=== PATIENT | female | born 1990 | race Caucasian/White ===

== ENCOUNTER 2021-07-11 11:32 | Emergency (ER) | payer BC, SELFPAY ==
--- NOTE | 2021-07-11 11:31 | ECG_ITS ---
APPROVED REPORT Exam: Resting ECG HR:73 bpm ECG Measurements Heart Rate 73 AXES WY 160 P 45 QRSd 76 QRS 9 QT 404 T 64 QTc 445 Conclusion Normal sinus rhythm Normal ECG Electronically signed by : Alonzo Escobar MD 07/12/2021 19:57:28
[2021-07-11 11:33] VITALS: BP 155/92; PULSE 75; RESP 19; TEMP 37; O2SAT 98; BMI 58.3
--- NOTE | 2021-07-11 12:01 | [facility].EDGENADL ---
ED Disposition Clinical Impression: COVID-19 Disposition: Home, Self-Care Condition on Discharge: Good Instructions: DI for COVID-19 (Suspected or Confirmed ) Additional Instructions: Please follow up with your primary care physician in 2-3 days for further management. Please take tylenol and ibuprofen for pain control and fever. Please continue to drink plenty of water and eat 3 balanced meals. Please also discuss with your primary care physician regarding your high blood pressure as blood pressure control whether through life style modification or medication use is important. Please return for symptoms that don't improve, difficulty breathing, worsening chest pain or any other worsening symptoms. Referrals: Provider,Referral, [Referring] - Forms: Work/School Release Time of Disposition: 12:30 - Critical Care Critical Care Time: No Attestation: On 07/11/21, the high probability of a clinically significant, sudden or life threatening deterioration of the following system(s) required my full and direct attention, intervention and personal management. The time I documented below is in addition to time spent performing reported procedures but includes the following listed in this critical care notation. Medical Decision Making - Medical Records Medical records reviewed: Yes: I reviewed the patient's medical records. - Jareth Inquiry Pt receiving controlled substance: No Vital Signs: 07/11/21 11:33 07/11/21 12:19 Temperature 98.6 F 98.5 F Temperature Source Oral Oral Pulse Rate 78 Pulse Rate [Right Radial] 75 Respiratory Rate 19 19 Blood Pressure 153/98 H Blood Pressure [Right Arm] 155/92 H Blood Pressure Mean [Right Arm] 113 Blood Pressure Source Automatic Cuff Blood Pressure Source [Right Arm] Automatic Cuff Blood Pressure Position Supine Blood Pressure Position [Right Arm] Supine 02 Sat by Pulse Oximetry 98 Oxygen Delivery Method Room Air Room Air - Lab Data Lab results reviewed: Yes: I reviewed the patient's lab results. Medical Decision Narrative: Miss Lowry is a 30 yo female w/ PMH for COVID on 07/08 who presents to the ED for residual covid symptoms including cough, chest pain. Patient is afebrile and hemodynamically stable on arrival. Patient is breathing comfortably with no increased work of breathing. Patient has equal breath sounds bilaterally w/ no wheezing, rhales or rhonchi. No concern for superimposed pneumonia at this time given duration of symptoms adn well appearing picture. Patient is perc negative low suspicion for pulmonary embolism will not investigate further. Bedside ECG normal sinus rhythm. After thorough medical evaluation patient is informed to take tylenol and ibuprofen and to follow up with her primary care physician via telehealth in 2-3 days. Patient provided strict return precautions such as difficultly breathing, inability to eat and drink or worsening chest pain. Patient is informed to self quarantine for remainder of quarantine period. Patient discharged in stable condition. General Adult HPI - General Chief complaint: Chest Pain Stated complaint: cp, covid + Time Seen by Provider: 07/11/21 11:40 Mode of Arrival: Ambulatory Source of Information: Patient Limitations: No Limitations - History of Present Illness HPI narrative: Miss Anand is a 30 yo female w/ PMH recent COVID diagnosis on 07/08 who presents to the ED for chest pain, cough and dyspnea. Patient reports symptom onset a few days prior and has not resolved. Associated symptoms include muscle cramps. Patient has been taking tylenol and ibuprofen with little relief. She denies any LE swelling/pain. No hemoptysis. No recent travel hx. No OCP use. No hx of blood clots and no blood thinner use. Vaccination history unknown at this time. Patient denies any recent trauma to the chest. Patient is tolerating po well with normal hydration. No bowel changes, fevers, chills, dizziness, lightheadness or any other co
[2021-07-11 12:19] VITALS: BP 153/98; PULSE 78; RESP 19; TEMP 36.9; O2SAT 98
== END 2021-07-11 12:19 | disposition home or self-care (01) ==
PROVIDERS: Emergency Provider Student in an Organized Health Care Education/Training Program; PCP Family Medicine
DX: U07.1 COVID-19 (principal)
CPT/HCPCS: 93005; 99281

== ENCOUNTER 2022-03-02 08:10 | Emergency (ER) | payer BC, SELFPAY ==
[2022-03-02 08:20] VITALS: BP 136/87; PULSE 89; RESP 22; TEMP 36.8; O2SAT 96; BMI 56.1
--- NOTE | 2022-03-02 08:57 | EXP.UTC ---
Discharge Plan Disposition Patient Disposition: Home, Self-Care Condition: Good Prescriptions Prescriptions: New amoxicillin-pot clavulanate 875-125 mg Tablet 1 tab PO Q12H Qty: 20 0RF prednisone 20 mg tablet 20 mg PO BID 5 Days Qty: 10 0RF Mucinex 1,200 mg tablet extended release 12hr 1,200 mg PO BID PRN (Reason: cough) Qty: 20 0RF albuterol sulfate [Proventil HFA] 90 mcg/actuation HFA aerosol inhaler 1 inh inhalation Q6H PRN (Reason: shortness of breath or wheezing) Qty: 8.5 0RF Referrals Follow up/Referrals: Caleb Peraza [Primary Care Provider] - See instructions Activity Restrictions/Add. Instructions Additional Instructions/Restrictions: Start antibiotic today. Be sure to complete entire prescription even if feeling better Monitor temp. Tylenol every 4 hours as needed and / or ibuprofen every 6 hours as needed ( As long as your primary care physician has told you that it ok to take both. For fever/aches/pains ER if no less than 101 despite Tylenol or Motrin Humidifier/vaporizer or hot steamy shower Inhaler every 4-6 hours as needed like we discussed. If unsure how to use it, ask pharmacist to demonstrate how. Should help open airways and improve cough, wheezing, and shortness of breath Mucinex for your cough and chest congestion Be sure to drink lots of water. *Start steroid today. Helps with inflammation therefore, cough and wheezing. Follow directions on the package. Reviewed side effects. Patient reports taking them before. Follow up IMMEDIATELY for new or worsening of symptoms OR no noticeable improvement over the next 48-72 hours. 911 immediately for any life threatening symptoms such as chest pain or difficulty breathing Clinical Impressions Clinical Impression: Sinusitis, Bronchitis Instructions Patient Instructions: DI for Sinusitis, Sinusitis, Acute Bronchitis Discharge ED Provider: Inez Hardy [facility] [place] General Stated complaint: soa, cough, congested Mode of Arrival: Ambulatory Source of Information: Patient Limitations: No Limitations Time Seen by Provider: 03/02/22 08:57 Description of Symptoms (Recalled from Triage Doc. by RN): PATIENT C/O TROUBLE BREATHING, COUGH WITH BLOOD MUCOUS, CONGESTION, AND COUGH X 3 DAYS HEENT Symptoms (Recalled from RN notes): Yes Resp Symptoms (Recalled from RN notes): Yes Skin Symptoms (Recalled from RN notes): No MS Symptoms (Recalled from RN notes): No Functional Status (Recalled from RN notes): WNL History of Present Illness Provider Complaint: Patient states that she was having sinus pain and pressure with bloody tinged mucous in her nose States that she feels like it is draining in the back of her throat and trying to move into her chest States that at times she will cough up mucous the same color that is coming out her nose and feels like she is getting bronchitis States that today she was still feeling bad so she came in Related Data Previous Rx's Medication Instructions Recorded albuterol sulfate 90 mcg/actuation 1 inh inhalation Q6H PRN shortness 03/02/22 aerosol inhaler (Proventil HFA) of breath or wheezing #8.5 grams amoxicillin 875 mg-potassium 1 tab PO Q12H #20 tabs 03/02/22 clavulanate 125 mg tablet guaifenesin 1,200 mg tablet, 1,200 mg PO BID PRN cough #20 tabs 03/02/22 extended release 12 hr (Mucinex) prednisone 20 mg tablet 20 mg PO BID 5 days #10 tabs 03/02/22 Allergies Allergy/AdvReac Type Severity Reaction Status Date / Time hazelnut AdvReac Severe Verified 07/11/21 12:10 Worker's Comp Is this a Worker's Comp case?: No PFSH PFSH Medical History (Updated 03/02/22 @ 09:16 by Inez Hardy APRN) Anxiety Asthma Depression Migraine Surgical History (Updated 03/02/22 @ 08:56 by Kenya Crooks RN) History of section History of cholecystectomy Social History (Updated 03/02/22 @ 08:55 by Kenya Crooks RN) Smoking St
[2022-03-02 09:22] VITALS: BP 136/87; PULSE 89; RESP 22; TEMP 36.8; O2SAT 96
== END 2022-03-02 09:24 | disposition home or self-care (01) ==
PROVIDERS: Emergency Provider Nurse Practitioner; PCP Family Medicine
DX: J32.9 Chronic sinusitis, unspecified (principal); J20.9 Acute bronchitis, unspecified
CPT/HCPCS: 99212; G0463

== ENCOUNTER 2022-04-25 08:10 | Emergency (ER) | payer BC, SELFPAY ==
--- NOTE | 2022-04-25 09:12 | EXP.UTC ---
Discharge Plan Disposition Patient Disposition: Home, Self-Care Condition: Good Prescriptions Prescriptions: New promethazine-DM 6.25-15 mg/5 mL Syrup 5 ml PO Q6H PRN (Reason: Cough) Qty: 240 0RF azithromycin [Zithromax] 250 mg tablet 250 mg PO UD DOSE PK Qty: 6 0RF Rx Instructions: Take two (2) tablets today, then one (1) tablet days #2 thru #5 benzonatate [benzonatate] 100 mg capsule 100 mg PO TIDP PRN (Reason: Cough) Qty: 30 0RF methylprednisolone 4 mg Tablets,Dose Pack 4 mg PO DIRECTED Qty: 21 0RF No Action amoxicillin-pot clavulanate 875-125 mg Tablet 1 tab PO Q12H Qty: 20 0RF prednisone 20 mg tablet 20 mg PO BID 5 Days Qty: 10 0RF Mucinex 1,200 mg tablet extended release 12hr 1,200 mg PO BID PRN (Reason: cough) Qty: 20 0RF albuterol sulfate [Proventil HFA] 90 mcg/actuation HFA aerosol inhaler 1 inh inhalation Q6H PRN (Reason: shortness of breath or wheezing) Qty: 8.5 0RF Referrals Follow up/Referrals: Caleb Peraza [Primary Care Provider] - See instructions Activity Restrictions/Add. Instructions Additional Instructions/Restrictions: Drink plenty of fluids. Take tylenol or ibuprofen for pain or fever. Take the medications as directed. Follow up with your regular doctor. GO TO THE ER FOR ANY WORSENING SYMPTOMS The cough medication (promethazine dm) will make you drowsy, so don't drive or operate heavy machinery after taking it. Clinical Impressions Clinical Impression: Viral syndrome, Bronchitis Stand Alone Forms Stand Alone Forms: Work/School Release Instructions Patient Instructions: Acute Bronchitis, DI for Viral Syndrome Discharge ED Provider: Oscar Martin [place] HPI General Stated complaint: Cough, Congestion Time Seen by Provider: 04/25/22 09:12 History of Present Illness Provider Complaint: She states that for the past 2 days she has had a worsening deep cough, sinus congestion and malaise. She had vomiting yesterday but today she is just nauseated. She also has diarrhea. Related Data Previous Rx's Medication Instructions Recorded albuterol sulfate 90 mcg/actuation 1 inh inhalation Q6H PRN shortness 09/08/22 aerosol inhaler (Proventil HFA) of breath or wheezing #8.5 grams amoxicillin 875 mg-potassium 1 tab PO Q12H #20 tabs 03/02/22 clavulanate 125 mg tablet guaifenesin 1,200 mg tablet, 1,200 mg PO BID PRN cough #20 tabs 03/02/22 extended release 12 hr (Mucinex) prednisone 20 mg tablet 20 mg PO BID 5 days #10 tabs 03/02/22 azithromycin 250 mg tablet 250 mg PO UD DOSE PK #6 tabs 04/25/22 (Zithromax) benzonatate 100 mg capsule 100 mg PO TIDP PRN Cough #30 caps 04/25/22 methylprednisolone 4 mg tablets in 4 mg PO DIRECTED #21 tabs 04/25/22 a dose pack promethazine-DM 6.25 mg-15 mg/5 mL 5 ml PO Q6H PRN Cough #240 mL 04/25/22 oral syrup Allergies Allergy/AdvReac Type Severity Reaction Status Date / Time hazelnut AdvReac Severe [facility]/11[facility]21 [facility] Anxiety Asthma Depression Migraine Surgical History History of section History of cholecystectomy Social History Smoking Status: Unknown if ever smoked alcohol intake: never current occupational status: other Travel in the last 8 weeks: None ROS Obtained: Yes All systems reviewed & no additional complaints except as documented Constitutional Constitutional: Reports chills and Reports fever(s) Eyes Eyes: Denies eye discharge ENT Ears, Nose, Mouth, and Throat: Reports as per HPI Cardiovascular Cardiovascular: Denies chest pain Respiratory Respiratory: Denies chest congestion and Reports cough Gastrointestinal Gastrointestingal: Reports nausea; Denies abdominal pain, constipation, cramping, diarrhea or vomiting Musculoskeletal Musculoskeletal
[2022-04-25 09:20] VITALS: BP 149/96; PULSE 77; RESP 18; TEMP 36.8; O2SAT 96; BMI 56.6
[2022-04-25 09:22] VITALS: BP 149/96; PULSE 77; RESP 18; TEMP 36.8
[2022-04-25 09:31] LABS: Adenovirus,PCR Not Detected (NotDetected); Bordetella Pertussis Not Detected (NotDetected); Chlamydophila Pneumoniae, PCR Not Detected (NotDetected); Coronavirus 19, PCR Not Detected (NotDetected); Coronavirus 229E Not Detected (NotDetected); Coronavirus NL63 Not Detected (NotDetected); Coronavirus OC43 Not Detected (NotDetected); Coronovirus HKU1,PCR Not Detected (NotDetected); Human Metapneumovirus Not Detected (NotDetected); Influenza A, PCR Not Detected (NotDetected); Influenza AH1, 2009 Not Detected (NotDetected); Influenza AH1, PCR Not Detected (NotDetected); Influenza AH3,PCR Not Detected (NotDetected); Influenza B, PCR Not Detected (NotDetected); Mycoplasma Pneumoniae, PCR Not Detected (NotDetected); Parainfluenza 1, PCR Not Detected (NotDetected); Parainfluenza 3, PCR Not Detected (NotDetected); Parainfluenza 4, PCR Not Detected (NotDetected); Respiratory Syncytial Virus Not Detected (NotDetected)
[2022-04-25 17:40] LABS: Parainfluenza 2, PCR Detected (NotDetected); Rhinovirus/Enterovirus Detected (NotDetected)
== END 2022-04-25 09:28 | disposition home or self-care (01) ==
PROVIDERS: Emergency Provider Nurse Practitioner Family; PCP Family Medicine
DX: J40 Bronchitis, not specified as acute or chronic (principal); B34.8 Other viral infections of unspecified site
CPT/HCPCS: 87581; 87632; 87798; 99212; C9803; G0463; U0003; U0005

== ENCOUNTER 2023-02-12 09:01 | Emergency (ER) | payer BC, SELFPAY ==
[2023-02-12 09:03] VITALS: BP 142/89; PULSE 105; RESP 18; TEMP 37.7; O2SAT 95; BMI 57.4
--- NOTE | 2023-02-12 09:15 | EXP.UTC ---
Discharge Plan Disposition Patient Disposition: Home, Self-Care Condition: Good Prescriptions Prescriptions: New amoxicillin [amoxicillin] 875 mg tablet 875 mg PO Q12H Qty: 20 0RF [id number] [Bromfed DM] 2-30-10 mg/5 mL Syrup 5 ml PO Q6H PRN (Reason: Cough) Qty: 240 0RF ondansetron 4 mg Tablet,Disintegrating 4 mg PO Q8H PRN (Reason: Nausea) Qty: 12 0RF methylprednisolone 4 mg Tablets,Dose Pack 4 mg PO DIRECTED Qty: 21 0RF No Action amoxicillin-pot clavulanate 875-125 mg Tablet 1 tab PO Q12H Qty: 20 0RF prednisone 20 mg tablet 20 mg PO BID 5 Days Qty: 10 0RF Mucinex 1,200 mg tablet extended release 12hr 1,200 mg PO BID PRN (Reason: cough) Qty: 20 0RF albuterol sulfate [Proventil HFA] 90 mcg/actuation HFA aerosol inhaler 1 inh inhalation Q6H PRN (Reason: shortness of breath or wheezing) Qty: 8.5 0RF promethazine-DM 6.25-15 mg/5 mL Syrup 5 ml PO Q6H PRN (Reason: Cough) Qty: 240 0RF azithromycin [Zithromax] 250 mg tablet 250 mg PO UD DOSE PK Qty: 6 0RF Rx Instructions: Take two (2) tablets today, then one (1) tablet days #2 thru #5 benzonatate [benzonatate] 100 mg capsule 100 mg PO TIDP PRN (Reason: Cough) Qty: 30 0RF methylprednisolone 4 mg Tablets,Dose Pack 4 mg PO DIRECTED Qty: 21 0RF Referrals Follow up/Referrals: Caleb Peraza [Primary Care Provider] - See instructions Activity Restrictions/Add. Instructions Additional Instructions/Restrictions: Drink plenty of fluids. Take tylenol or ibuprofen for pain or fever. Take the medications as directed. Follow up with your regular doctor. GO TO THE ER FOR ANY WORSENING SYMPTOMS Clinical Impressions Clinical Impression: Bronchitis, Acute viral syndrome Stand Alone Forms Stand Alone Forms: Work/School Release Instructions Patient Instructions: Acute Bronchitis, DI for Acute Bronchitis, DI for Viral Syndrome Discharge ED Provider: Oscar Martin [facility] HPI General Stated complaint: cough no voice vomiting Time Seen by Provider: 02/12/23 09:15 History of Present Illness Provider Complaint: She states that for the past 4 days she has had sinus congestion, ear pain, and chest congestion. Related Data Previous Rx's Medication Instructions Recorded albuterol sulfate 90 mcg/actuation 1 inh inhalation Q6H PRN shortness 03/02/22 aerosol inhaler (Proventil HFA) of breath or wheezing #8.5 grams amoxicillin 875 mg-potassium 1 tab PO Q12H #20 tabs 03/02/22 clavulanate 125 mg tablet guaifenesin 1,200 mg tablet, 1,200 mg PO BID PRN cough #20 tabs 03/02/22 extended release 12 hr (Mucinex) prednisone 20 mg tablet 20 mg PO BID 5 days #10 tabs 03/02/22 azithromycin 250 mg tablet 250 mg PO UD DOSE PK #6 tabs 04/25/22 (Zithromax) benzonatate 100 mg capsule 100 mg PO TIDP PRN Cough #30 caps 04/25/22 methylprednisolone 4 mg tablets in 4 mg PO DIRECTED #21 tabs 04/25/22 a dose pack promethazine-DM 6.25 mg-15 mg/5 mL 5 ml PO Q6H PRN Cough #240 mL 04/25/22 oral syrup amoxicillin 875 mg tablet 875 mg PO Q12H #20 tabs 02/12/23 [id number]-[id number] 5 ml PO Q6H PRN Cough #240 mL 02/12/23 2 mg-30 mg-10 mg/5 mL oral syrup (Bromfed DM) ondansetron 4 mg disintegrating 4 mg PO Q8H PRN Nausea #12 tabs 02/12/23 tablet methylprednisolone 4 mg tablets in 4 mg PO DIRECTED #21 tabs 02/13/23 a dose pack Allergies Allergy/AdvReac Type Severity Reaction Status Date / Time hazelnut AdvReac Severe Verified 07/11/21 12:10 [facility] Disclaimer: The information contained in this section may have been updated after the patient was seen, as this information can be updated by other users. Medical History Anxiety Asthma Depression Migraine Surgical History History of section History of cholecystectomy Social History (Reviewed 0
[2023-02-12 09:59] VITALS: BP 142/89; PULSE 105; RESP 18; TEMP 37.7; O2SAT 95
== END 2023-02-12 10:00 | disposition home or self-care (01) ==
PROVIDERS: Emergency Provider Nurse Practitioner Family; PCP Family Medicine
DX: J20.9 Acute bronchitis, unspecified; H92.03 Otalgia, bilateral; B34.9 Viral infection, unspecified; J45.909 Unspecified asthma, uncomplicated; F41.9 Anxiety disorder, unspecified; F32.A Depression, unspecified
CPT/HCPCS: 99212; 99214; G0463